=== PATIENT | male | born 1940 | race Caucasian/White ===

== ENCOUNTER 2016-10-15 10:02 | Outpatient (CLI) ==
[2014-06-16 07:13] VITALS: BMI 33.5
--- NOTE | 2016-10-15 11:08 | DI ---
EXAM: Chest two view, frontal and lateral views. HISTORY: Cough. COMPARISON: 11/02/2015. FINDINGS: Heart size is normal. Sutures project over the heart. There is no vascular congestion. Elevation of the right diaphragm/diaphragmatic hernia with right basilar scarring is stable. Lungs otherwise clear without pleural effusion or pneumothorax. Anterior wedging of a lower thoracic yazan tebral body is stable. Since the prior study, there has been no significant interval change. IMPRESSION: No acute process.
== END 2016-10-15 10:03 | disposition home or self-care (01) ==
LOC: RAD 10:02
PROVIDERS: ATTEND Family Medicine
DX: R05 Cough (principal)

== ENCOUNTER 2017-10-23 07:54 | Outpatient (CLI) ==
[2014-06-16 07:13] VITALS: BMI 33.5
--- NOTE | 2017-10-23 08:33 | DI ---
EXAM: Two views of the chest. History: Chronic obstructive pulmonary disease Comparison: Chest radiograph 10/15/2016 Findings: Heart size is borderline enlarged. Elevation of the right hemidiaphragm/diaphragmatic her renetta again noted with no change in the right basilar atelectasis or scarring. No developing infiltrat es. No pneumothorax. The visualized osseous structures unchanged. Impression: No acute cardiopulmonary process. No change compared to the prior study.
== END 2017-10-23 07:55 | disposition home or self-care (01) ==
LOC: RAD 07:54
PROVIDERS: ATTEND Nurse Practitioner Family
DX: J44.9 Chronic obstructive pulmonary disease, unspecified (principal)

== ENCOUNTER 2018-10-28 08:25 | Outpatient (CLI) ==
[2014-06-16 07:13] VITALS: BMI 33.5
--- NOTE | 2018-10-28 08:51 | DI ---
EXAM: Two views of the chest. History: Chronic obstructive pulmonary disease Comparison: Chest radiograph 10/23/2017 Findings: Heart remains enlarged. Elevation of the right hemidiaphragm/diaphragmatic hernia again n oted with no change in the right basilar atelectasis or scarring. No developing infiltrates. No pne umothorax. Visualized osseous structures unchanged. Impression: Stable chronic findings. No acute intrathoracic process. No change compared to the patricia or study.
== END 2018-10-28 08:26 | disposition home or self-care (01) ==
LOC: RAD 08:25
PROVIDERS: ATTEND Nurse Practitioner Family
DX: J44.9 Chronic obstructive pulmonary disease, unspecified (principal)

== ENCOUNTER 2019-04-15 08:00 | Outpatient (RCR) | payer OTHER ==
[2014-06-16 07:13] VITALS: BMI 33.5
--- NOTE | 2019-03-22 11:27 | RS.OPPTDN ---
Subjective Date of Note: 03/22/19 Visit #: 2 Number of visits approved by Insurance: na Date of Evaluation: 03/17/19 Payer Source: MEDICARE ([employer]) Treatment Diagnosis: Low back pain Current Subjective/complaints:: Patient reports the initial standing is still when the pain occurs.He tolerates sitting and driving today. Pain Assessment - Pain Description Pain Location: Lumbar and L PSIS area Pain Description: Dull, Aching Current Pain Intensity: 4/10 - Treatment Modality: Electrical Stim Unattended Parameters/Method Applied: 20 mins. high volt to lumbar,channel 1 @ 280 pv, channel 2 @ 215 - 230 pv. Patient Position: Supine - Heat/Cryotherapy Treatment: Hot Pack (concurrent with e-stim) Interventions - Exercise/Activities/Manual Therapy Exercises/Activities: 20 mins. of pelvic tilts ,SKTC,DKTC,hamstring stretches , piriformis stretches,R sidelying IT band stretch.MET of R hip ext / L hip flex. Total minutes of Exercise: 20 Manual Therapy: NA Total minutes of Manual Therapy: 0 HOME EXERCISE PROGRAM: left HS and piriformis stretch and left hip flexion isometrics - Charges Timed Code Treatment Minutes: 20 Total Treatment Time: 40 Procedures billed for this date of service:: hp,e-stim,ex Assessment: Patient has good return demo of exercises today,less intensity of pain in L lumbar,but feels the aching in the center of the low back after treatment.He reports doing abdominal crunches at the gym,discussed to do all exercises in pain free ROM.Recommended the pelvic tilts ,as opposed to the crunches when the back pain is present.His L LE was initially shorter than the R ,but is corrected with MET. Patient Education: Home Exercise Program, Activity Modification, Education of Plan of Care Patient demonstrates compliance with HEP?: Yes Short Term Goals Goal #1: Patient independent and compliant in HEP Goal to be met by: 03/31/19 Progress towards Goal:: Progressing Goal #2: Bilateral SLR to 50 degrees. Goal to be met by: 03/31/19 Goal #3: Patient to report left low back pain <6/10 at worst. Goal to be met by: 03/31/19 Progress towards Goal:: Progressing Goal #4: Pt to report less back pain upon getting out of bed in the morning. Goal to be met by: 03/31/19 [facility]cf Goals Goal #1: Pt in HEP and MET to manage symptoms and maintain level of function. Goal to be met by: 04/26/19 Progress towards goal: Progressing Goal #2: Score on Oswestry LBP scale improved to 24. Goal to be met by: 04/26/19 Goal #3: Pt able to perform all ADL's without low back pain. Goal to be met by: 04/26/19 Goal #4: Pt to tolerate standing and walking with min. low back pain. Goal to be met by: 04/26/19 Plan Dates of Woodworker Helper Goals: 04/26/19 Expiration date of current Insurance Approval:: 04/26/19 PLAN: Cont. skilled to reduce/eliminate LBP , returning to PLOF.
--- NOTE | 2019-03-26 15:31 | RS.OPPTDN ---
Subjective Date of Note: 03/26/19 Visit #: 3 Number of visits approved by Insurance: na Date of Evaluation: 03/17/19 Payer Source: MEDICARE ([facility]) Treatment Diagnosis: Low back pain Current Subjective/complaints:: Patient reports elevated pain this morning , tends to lessen as the day progresses. Pain Assessment - Pain Description Pain Location: lumbar/SI joints Pain Description: Dull, Aching Current Pain Intensity: 2/10 Worst Pain Intensity: 7/10 this AM - Treatment Modality: Electrical Stim Unattended Parameters/Method Applied: 20 mins. high volt ,channel 1 @ 300 pv,channel 2 @ 280 pv. Patient Position: Supine - Heat/Cryotherapy Treatment: Hot Pack (concurrent with e-stim) Interventions - Exercise/Activities/Manual Therapy Exercises/Activities: 20 mins. of pelvic tilts ,SKTC,DKTC,hamstring stretches , piriformis stretches,R sidelying IT band stretch.MET of R hip ext / L hip flex. Total minutes of Exercise: 20 Manual Therapy: NA Total minutes of Manual Therapy: 0 HOME EXERCISE PROGRAM: left HS and piriformis stretch and left hip flexion isometrics - Charges Timed Code Treatment Minutes: 20 Total Treatment Time: 40 Procedures billed for this date of service:: hp,e-stim,ex Assessment: Patient reports the pain has shifted to the R SI joint after session today,but also it generally lessens as he walks more.He generally feels better with activity,as opposed to being at rest.His hamstring extensibility improves after the stretches ,but initially had moderate tightness. Patient Education: Body/Joint mechanics, Home Exercise Program, Activity Modification, Education of Plan of Care Patient demonstrates compliance with HEP?: Yes Short Term Goals Goal #1: Patient independent and compliant in HEP Goal to be met by: 03/31/19 Progress towards Goal:: Progressing Goal #2: Bilateral SLR to 50 degrees. Goal to be met by: 03/31/19 Goal #3: Patient to report left low back pain <6/10 at worst. Goal to be met by: 03/31/19 Progress towards Goal:: Progressing Goal #4: Pt to report less back pain upon getting out of bed in the morning. Goal to be met by: 03/31/19 Longterm Goals Goal #1: Pt in HEP and MET to manage symptoms and maintain level of function. Goal to be met by: 04/26/19 Progress towards goal: Progressing Goal #2: Score on Oswestry LBP scale improved to 24. Goal to be met by: 04/26/19 Goal #3: Pt able to perform all ADL's without low back pain. Goal to be met by: 04/26/19 Goal #4: Pt to tolerate standing and walking with min. low back pain. Goal to be met by: 04/26/19 Plan Dates of Longterm Goals: 04/26/19 Expiration date of current Insurance Approval:: 04/26/19 PLAN: Cont. skilled PT to reduce/eliminate LBP,returning to PLOF.
--- NOTE | 2019-03-29 09:58 | RS.OPPTDN ---
Subjective Date of Note: 03/29/19 Visit #: 4 Number of visits approved by Insurance: na Date of Evaluation: 03/17/19 Payer Source: MEDICARE ([employer]) Treatment Diagnosis: Low back pain Current Subjective/complaints:: Patient reports returning to gym this morning , tolerated well doing low intensity activities,such as treadmill walking .We duscussed the elliptical as another option. Pain Assessment - Pain Description Pain Location: lumbar Pain Description: Dull, Aching Pain Description: minimal Current Pain Intensity: not rated - Treatment Modality: Electrical Stim Unattended Parameters/Method Applied: 20 mins. high volt ,channel 1 @ 270 - 290 pv,channel 2 @ 370 pv. to lumbar. Patient Position: Supine - Heat/Cryotherapy Treatment: Hot Pack (concurrent with e-stim) Interventions - Exercise/Activities/Manual Therapy Exercises/Activities: 20 mins. of pelvic tilts ,SKTC,DKTC,hamstring stretches , piriformis stretches,R sidelying IT band stretch.MET of R hip ext / L hip flex. Total minutes of Exercise: 20 Manual Therapy: NA Total minutes of Manual Therapy: 0 HOME EXERCISE PROGRAM: left HS and piriformis stretch and left hip flexion isometrics - Charges Timed Code Treatment Minutes: 20 Total Treatment Time: 40 Procedures billed for this date of service:: hp,e-stim ,exercise Assessment: Patient progressing well,reports less intensity ,less duration and frequency of LBP.He does notice that standing still causes discomfort ,but understands to change positions frequently. Patient Education: Body/Joint mechanics, Home Exercise Program, Home Safety, Activity Modification, Education of Plan of Care Patient demonstrates compliance with HEP?: Yes Short Term Goals Goal #1: Patient independent and compliant in HEP Goal to be met by: 03/31/19 Progress towards Goal:: Met Goal #2: Bilateral SLR to 50 degrees. Goal to be met by: 03/31/19 Goal #3: Patient to report left low back pain <6/10 at worst. Goal to be met by: 03/31/19 Progress towards Goal:: Partially Met (minimal today,not rated on 0 to 10 scale) Goal #4: Pt to report less back pain upon getting out of bed in the morning. Goal to be met by: 03/31/19 Progress towards Goal:: Progressing Snf Goals Goal #1: Pt in HEP and MET to manage symptoms and maintain level of function. Goal to be met by: 04/26/19 Progress towards goal: Progressing Goal #2: Score on Oswestry LBP scale improved to 24. Goal to be met by: 04/26/19 Goal #3: Pt able to perform all ADL's without low back pain. Goal to be met by: 04/26/19 Progress towards goal: Progressing (tolerated gym workout this AM doinglow intensity exercises) Goal #4: Pt to tolerate standing and walking with min. low back pain. Goal to be met by: 04/26/19 Progress towards goal: Progressing Plan Dates of Shellfish Shucker Goals: 04/26/19 Expiration date of current Insurance Approval:: 04/26/19 PLAN: Cont. skilled PT to reduce/eliminate LBP.
--- NOTE | 2019-04-02 10:15 | RS.OPPTDN ---
Subjective Date of Note: 04/02/19 Visit #: 5 Number of visits approved by Insurance: na Date of Evaluation: 03/17/19 Payer Source: MEDICARE ([employer]) Treatment Diagnosis: Low back pain Current Subjective/complaints:: Patient reports he may have done too much yesterday,had elevated pain earlier this AM.The pain has lessened since being up and moving around.He did not go to the gym this AM. Pain Assessment - Pain Description Pain Location: lumbar ,more on L PSIS today Pain Description: Dull, Aching Current Pain Intensity: 2 Worst Pain Intensity: 7 - Heat/Cryotherapy Treatment: Hot Pack (20 mins. prior to manual therapy ) Interventions - Exercise/Activities/Manual Therapy Exercises/Activities: NA Total minutes of Exercise: 0 Manual Therapy: Deep tisue mobs. to lumbar region. Total minutes of Manual Therapy: 30 HOME EXERCISE PROGRAM: left HS and piriformis stretch and left hip flexion isometrics - Charges Timed Code Treatment Minutes: 30 Total Treatment Time: 50 Procedures billed for this date of service:: hp,manual therapy 2 Assessment: Patient reports decreased lumbar pain .He does have trigger point tenderness along the L PSIS area.He is motivated to improve ,compliant to recommendations of the therapy staff. Patient Education: Body/Joint mechanics, Home Exercise Program, Education of Plan of Care Patient demonstrates compliance with HEP?: Yes Short Term Goals Goal #1: Patient independent and compliant in HEP Goal to be met by: 03/31/19 Progress towards Goal:: Met Goal #2: Bilateral SLR to 50 degrees. Goal to be met by: 03/31/19 Goal #3: Patient to report left low back pain <6/10 at worst. Goal to be met by: 03/31/19 Progress towards Goal:: Partially Met (minimal today,not rated on 0 to 10 scale) Goal #4: Pt to report less back pain upon getting out of bed in the morning. Goal to be met by: 03/31/19 Progress towards Goal:: Regressing (increased this morning to 7/10 with initial standing from bed) Rigger Third Goals Goal #1: Pt in HEP and MET to manage symptoms and maintain level of function. Goal to be met by: 04/26/19 Progress towards goal: Progressing Goal #2: Score on Oswestry LBP scale improved to 24. Goal to be met by: 04/26/19 Goal #3: Pt able to perform all ADL's without low back pain. Goal to be met by: 04/26/19 Progress towards goal: Progressing (tolerated gym workout this AM doinglow intensity exercises) Goal #4: Pt to tolerate standing and walking with min. low back pain. Goal to be met by: 04/26/19 Progress towards goal: Partially Met (patient reports his pain lessens when moving around) Plan Dates of Jail Goals: 04/26/19 Expiration date of current Insurance Approval:: PLAN: Cont. skilled PT to reduce / elminate LBP.
--- NOTE | 2019-04-05 10:32 | RS.OPPTDN ---
Subjective Date of Note: 04/05/19 Visit #: 6 Number of visits approved by Insurance: na Date of Evaluation: 03/17/19 Payer Source: MEDICARE (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 Pain Assessment - Pain Description Pain Location: lumbar / L buttocks Pain Description: Tightness, Aching Current Pain Intensity: 7 Worst Pain Intensity: 10/10 - Treatment Modality: Electrical Stim Unattended Parameters/Method Applied: 20 mins. high volt ,channel 1 @ 220 pv,channel 2 @ 250 pv,to lumbar / L buttock Patient Position: Right Sidelying - Heat/Cryotherapy Treatment: Hot Pack (concurrent with e-stim) Interventions - Exercise/Activities/Manual Therapy Exercises/Activities: 35 mins. total,including , patient education for positioning and pain relief,body mechanics,hamstring stretches.L piriformis and IT band stretches,R sidelying gravity - assisted stretches to L hip /LE.LLE long -axis distraction anfd MET for SI joint. 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 Patient Education: Body/Joint mechanics, Home Exercise Program, Home Safety, Activity Modification, Education of Plan of Care Patient demonstrates compliance with HEP?: Yes Short Term Goals Goal #1: Patient independent and compliant in HEP Goal to be met by: 03/31/19 Progress towards Goal:: Met Goal #2: Bilateral SLR to 50 degrees. Goal to be met by: 03/31/19 Progress towards Goal:: Progressing Goal #3: Patient to report left low back pain <6/10 at worst. Goal to be met by: 03/31/19 Progress towards Goal:: Regressing (10/10 yesterday,7/10 today) Goal #4: Pt to report less back pain upon getting out of bed in the morning. Goal to be met by: 03/31/19 Progress towards Goal:: Regressing (increased this morning to 10/10 with initial standing from bed,7/10 upon arival today) Home Performance Consultant Goals Goal #1: Pt in HEP and MET to manage symptoms and maintain level of function. Goal to be met by: 04/26/19 Progress towards goal: Progressing Goal #2: Score on Oswestry LBP scale improved to 24. Goal to be met by: 04/26/19 Goal #3: Pt able to perform all ADL's without low back pain. Goal to be met by: 04/26/19 Progress towards goal: Regressing (elevated today,even after PT session) Goal #4: Pt to tolerate standing and walking with min. low back pain. Goal to be met by: 04/26/19 Progress towards goal: Regressing (patient reports his pain lessens when moving around generally ,but elevated today) Plan Dates of Alf Goals: 04/26/19 Expiration date of current Insurance Approval:: 04/26/19 PLAN: Cont. skilled PT to reduce/eliminate LBP,returning to highest LOF possible.
--- NOTE | 2019-04-07 10:32 | RS.OPPTDN ---
Subjective Date of Note: 04/07/19 Visit #: 7 Number of visits approved by Insurance: na Date of Evaluation: 03/17/19 Payer Source: MEDICARE ([employer]) Treatment Diagnosis: Low back pain Current Subjective/complaints:: Patient reports having adjustment and massage yesterday at chiropractor ,feels better.He was able to sleep in the bed comfortably last night. Pain Assessment - Pain Description Pain Location: lumbar,L SI and L buttock Pain Description: Dull, Aching, Chronic Current Pain Intensity: 5 Other Comments regarding Pain:: pain reduces in the AM when moving around at home ,then elevates dependent upon how long he is up - Treatment Modality: Electrical Stim Unattended Parameters/Method Applied: 20 mins. high volt to lumbar and L buttock area, channel 1 @ 215 pv , channel 2 @ 205 pv. Patient Position: Right Sidelying - Heat/Cryotherapy Treatment: Hot Pack (concurrent with e-stim) Interventions - Exercise/Activities/Manual Therapy Exercises/Activities: NA Total minutes of Exercise: 0 Manual Therapy: na Total minutes of Manual Therapy: 20 mins. deep tissue /trigger point pressure to the L piriformis HOME EXERCISE PROGRAM: left HS and piriformis stretch and left hip flexion isometrics - Charges Timed Code Treatment Minutes: 20 Total Treatment Time: 40 Procedures billed for this date of service:: hp,e-stim,manual therapy Assessment: Patient reports no pain after therapy today.He tolerates moderate to firm pressure to the piriformis msucle belly today with no sciatic symptoms.He is compliant to hEP as tolerated .We have also discussed to not push through elevated pain when stretching or strengthening exercises. Patient Education: Education of diagnosis, Body/Joint mechanics, Home Exercise Program, Home Safety, Activity Modification, Education of Plan of Care Patient demonstrates compliance with HEP?: Yes Short Term Goals Goal #1: Patient independent and compliant in HEP Goal to be met by: 03/31/19 Progress towards Goal:: Met Goal #2: Bilateral SLR to 50 degrees. Goal to be met by: 03/31/19 Progress towards Goal:: Progressing Goal #3: Patient to report left low back pain <6/10 at worst. Goal to be met by: 03/31/19 Progress towards Goal:: Progressing Goal #4: Pt to report less back pain upon getting out of bed in the morning. Goal to be met by: 03/31/19 Progress towards Goal:: Progressing Operators School Manager Goals Goal #1: Pt in HEP and MET to manage symptoms and maintain level of function. Goal to be met by: 04/26/19 Progress towards goal: Progressing Goal #2: Score on Oswestry LBP scale improved to 24. Goal to be met by: 04/26/19 Goal #3: Pt able to perform all ADL's without low back pain. Goal to be met by: 04/26/19 Progress towards goal: Progressing Goal #4: Pt to tolerate standing and walking with min. low back pain. Goal to be met by: 04/26/19 Progress towards goal: Progressing Plan Dates of Operators School Manager Goals: 04/26/19 Expiration date of current Insurance Approval:: 04/26/19 PLAN: Cont. skilled PT to reduce /eliminate LBP,return to PLOF.
--- NOTE | 2019-04-09 10:15 | RS.OPPTDN ---
Subjective Date of Note: 04/09/19 Visit #: 8 Number of visits approved by Insurance: na Date of Evaluation: 03/17/19 Payer Source: MEDICARE ([employer]) Treatment Diagnosis: Low back pain Current Subjective/complaints:: Patient reports minimal pain this AM after exercising at home.he feels the hamstring stretches may be contributing to his pain,We discussed modifying the exercises to a comfortable level. Pain Assessment - Pain Description Pain Location: L lumbar and L buttocks Pain Description: Dull, Aching, Chronic Current Pain Intensity: not rated today - Treatment Modality: Electrical Stim Unattended Parameters/Method Applied: 20 mins. high volt ,channel 1 and 2 @ 250 pv to lumbar and L buttocks. Patient Position: Right Sidelying - Heat/Cryotherapy Treatment: Hot Pack (concurrent with e-stim) Interventions - Exercise/Activities/Manual Therapy Exercises/Activities: NA Total minutes of Exercise: 0 Manual Therapy: 20 mins. deep tissue mobs. to lumbar and L piriformis. Total minutes of Manual Therapy: 20 HOME EXERCISE PROGRAM: left HS and piriformis stretch and left hip flexion isometrics - Charges Timed Code Treatment Minutes: 20 Total Treatment Time: 20 Procedures billed for this date of service:: hp,e-stim,manual therapy Assessment: Patient reports significant relief today after manual therapy .He has good understanding of HEP , is pro-active regarding his health.He has more erect posture today ,no antalgia present with ambulation. Patient Education: Education of diagnosis, Body/Joint mechanics, Home Exercise Program, Home Safety, Activity Modification, Education of Plan of Care Patient demonstrates compliance with HEP?: Yes Short Term Goals Goal #1: Patient independent and compliant in HEP Goal to be met by: 03/31/19 Progress towards Goal:: Met Goal #2: Bilateral SLR to 50 degrees. Goal to be met by: 03/31/19 Progress towards Goal:: Met Goal #3: Patient to report left low back pain <6/10 at worst. Goal to be met by: 03/31/19 Progress towards Goal:: Progressing Goal #4: Pt to report less back pain upon getting out of bed in the morning. Goal to be met by: 03/31/19 Progress towards Goal:: Progressing Iron Pourer Goals Goal #1: Pt I in HEP and MET to manage symptoms and maintain level of function. Goal to be met by: 04/26/19 Progress towards goal: Progressing Goal #2: Score on Oswestry LBP scale improved to 24. Goal to be met by: 04/26/19 Goal #3: Pt able to perform all ADL's without low back pain. Goal to be met by: 04/26/19 Progress towards goal: Progressing Goal #4: Pt to tolerate standing and walking with min. low back pain. Goal to be met by: 04/26/19 Progress towards goal: Progressing Plan Dates of Mcc Goals: 04/26/19 Expiration date of current Insurance Approval:: 04/26/19 PLAN: Cont. skilled PT to reduce/eliminate lumbar and L hip pain.
--- NOTE | 2019-04-13 09:22 | RS.OPPTDN ---
Subjective Date of Note: 04/13/19 Visit #: 9 Number of visits approved by Insurance: na Date of Evaluation: 03/17/19 Payer Source: MEDICARE ([employer]) Treatment Diagnosis: Low back pain Current Subjective/complaints:: Patient reports the back feels better today,no pain at this time.He also reports it is easier getting out of the bed now. Pain Assessment - Pain Description Pain Location: lumbar /L PSIS Pain Description: Dull, Aching, Chronic Current Pain Intensity: 0 at rest - Heat/Cryotherapy Treatment: Hot Pack (20 mins. prior to exercises) Interventions - Exercise/Activities/Manual Therapy Exercises/Activities: 40 mins. total,including patient education for body mechanics during gym workouts,supine SI muscle energy,LTR,piriformis stretch, hamstring stretches,standing postural pullbacks (rowing ) and pulldowns from overhead . Total minutes of Exercise: 40 Manual Therapy: na Total minutes of Manual Therapy: 0 HOME EXERCISE PROGRAM: left HS and piriformis stretch and left hip flexion isometrics - Charges Timed Code Treatment Minutes: 40 Total Treatment Time: 60 Procedures billed for this date of service:: hp,ex 3 Assessment: Callie reports no pain today,has improved standing posture,more aware of activity modification with tasks that elevate the pain.He is compliant to all recommendations of the therapy staff.He has minimal leg length discrepancy ,which is more easily corrected now with SI muscle energy . Patient Education: Body/Joint mechanics, Home Exercise Program, Home Safety, Activity Modification Patient demonstrates compliance with HEP?: Yes Short Term Goals Goal #1: Patient independent and compliant in HEP Goal to be met by: 03/31/19 Progress towards Goal:: Met Goal #2: Bilateral SLR to 50 degrees. Goal to be met by: 03/31/19 Progress towards Goal:: Met Goal #3: Patient to report left low back pain <6/10 at worst. Goal to be met by: 03/31/19 Progress towards Goal:: Partially Met (none today) Goal #4: Pt to report less back pain upon getting out of bed in the morning. Goal to be met by: 03/31/19 Progress towards Goal:: Partially Met (none today) [facility] Goals Goal #1: Pt I in HEP and MET to manage symptoms and maintain level of function. Goal to be met by: 04/26/19 Progress towards goal: Met Goal #2: Score on Oswestry LBP scale improved to 24. Goal to be met by: 04/26/19 Goal #3: Pt able to perform all ADL's without low back pain. Goal to be met by: 04/26/19 Progress towards goal: Partially Met (much less intense when present) Goal #4: Pt to tolerate standing and walking with min. low back pain. Goal to be met by: 04/26/19 Progress towards goal: Progressing Plan Dates of [facility] Goals: 04/26/19 Expiration date of current Insurance Approval:: 04/26/19 PLAN: Cont. skilled PT to reduce/eliminate LBP.
--- NOTE | 2019-04-15 09:05 | RS.OPPTDN ---
Subjective Date of Note: 04/15/19 Visit #: 10 Number of visits approved by Insurance: na Date of Evaluation: 03/17/19 Payer Source: MEDICARE ([employer]) Treatment Diagnosis: Low back pain Current Subjective/complaints:: Pleased with his progres,has returned to the community gym 3 x/wk.The pain is " tolerable" for most ADL's,plans to continue the HEP.He is agreeable to D/C plan today. Pain Assessment - Pain Description Pain Location: lumbar/L hip and PSIS Pain Description: Dull, Aching Current Pain Intensity: 2 - Heat/Cryotherapy Treatment: Hot Pack (20 mins. prior to ex) Interventions - Exercise/Activities/Manual Therapy Exercises/Activities: 25 mins. total,including patient education for body mechanics during gym workouts,supine SI muscle energy,LTR,piriformis stretch, hamstring stretches,and Oswestry Low Back Scale done. Total minutes of Exercise: 25 Manual Therapy: na HOME EXERCISE PROGRAM: left HS and piriformis stretch and left hip flexion isometrics - Charges Timed Code Treatment Minutes: 25 Total Treatment Time: 45 Procedures billed for this date of service:: hp,ex 2 Assessment: Patient has met all rehab STG's,met or partially met LTG's. Patient Education: Home Exercise Program, Education of Plan of Care Patient demonstrates compliance with HEP?: Yes Short Term Goals Goal #1: Patient independent and compliant in HEP Goal to be met by: 03/31/19 Progress towards Goal:: Met Goal #2: Bilateral SLR to 50 degrees. Goal to be met by: 03/31/19 Progress towards Goal:: Met Goal #3: Patient to report left low back pain <6/10 at worst. Goal to be met by: 03/31/19 Progress towards Goal:: Met (none today) Goal #4: Pt to report less back pain upon getting out of bed in the morning. Goal to be met by: 03/31/19 Progress towards Goal:: Met (none today) [employer] Goals Goal #1: Pt I in HEP and MET to manage symptoms and maintain level of function. Goal to be met by: 04/26/19 Progress towards goal: Met Goal #2: Score on Oswestry LBP scale improved to 24. Goal to be met by: 04/26/19 Progress towards goal: Met Goal #3: Pt able to perform all ADL's without low back pain. Goal to be met by: 04/26/19 (80 % per patient ) Progress towards goal: Partially Met (much less intense when present) Goal #4: Pt to tolerate standing and walking with min. low back pain. Goal to be met by: 04/26/19 Progress towards goal: Met Plan Dates of [facility] Goals: 04/26/19 Expiration date of current Insurance Approval:: 04/26/19 PLAN: D/C due to good progress.
--- NOTE | 2019-04-16 15:36 | RS.OPPTDC ---
Date of Discharge: 04/15/19 Date of Evaluation: 03/17/19 Number of Visits: 10 Treatment Diagnosis: Low back pain Current Complaints/Gains: Mr. Mata reports being pleased with his progress. He is going to the gym 3x week. States pain is tolerable now. Functional Outcome Measure Oswestry LBP: 20 - G Codes & Severity Modifier G Codes & Modifier: NA Source of G Code score: NA Interventions - Exercise/Activities/Manual Therapy Exercises/Activities: NA Manual Therapy: na HOME EXERCISE PROGRAM: left HS and piriformis stretch and left hip flexion isometrics - Charges Timed Code Treatment Minutes: NA Total Treatment Time: NA Procedures billed for this date of service:: NA Assessment Assessment: Mr. Mata reports good progress with therapy. States pain is now to a more tolerable range. States pain still varies. He is independent with a HEP and is going to the gym 2-3 X week. He demonstrates no further skilled therapy need at this time. Short Term Goals Goal #1: Patient independent and compliant in HEP Goal to be met by: 03/31/19 Progress towards Goal:: Met Goal #2: Bilateral SLR to 50 degrees. Goal to be met by: 03/31/19 Progress towards Goal:: Met Goal #3: Patient to report left low back pain <6/10 at worst. Goal to be met by: 03/31/19 Progress towards Goal:: Met (2/10) Goal #4: Pt to report less back pain upon getting out of bed in the morning. Goal to be met by: 03/31/19 Progress towards Goal:: Met (stiffness reported with getting out of bed) [employer] Goals Goal #1: Pt I in HEP and MET to manage symptoms and maintain level of function. Goal to be met by: 04/26/19 Progress towards goal: Met Goal #2: Score on Oswestry LBP scale improved to 24. Goal to be met by: 04/26/19 Progress towards goal: Met Goal #3: Pt able to perform all ADL's without low back pain. Goal to be met by: 04/26/19 (80 % per patient ) Progress towards goal: Partially Met (much less intense when present) Goal #4: Pt to tolerate standing and walking with min. low back pain. Goal to be met by: 04/26/19 Progress towards goal: Met Plan Reason for Discharge:: No Further Skilled Therapy Indicated
== END 2019-04-17 23:59 ==
PROVIDERS: ATTEND Family Medicine
DX: M54.5 Low back pain (principal)